=== PATIENT | female | born 1985 | race Caucasian/White ===

== ENCOUNTER 2025-04-27 08:16 | Inpatient (IN) | payer BC ==
[~2025-04-27 08:16] MED LIST: Sodium Chloride 0.9% 10 ML Syringe FLUSH PRN; Sodium Chloride 0.9% 10 ML Syringe FLUSH SCH; propofoL 500 MG/50 ML 50 ML ONE
[2025-04-27] MEDS ORDERED: Propofol 200 MG/20 ML SDV ONE ×2 (08:18→09:30)
[2025-04-27] MEDS ORDERED: dexmedeTOMIDine HCl 200 MCG/2 ML SDV ONE (08:20)
[2025-04-27] MEDS ORDERED: Dexamethasone 4 MG/ML 5 ML MDV ONE (08:20)
[2025-04-27] MEDS ORDERED: Ondansetron 4 MG/2 ML SDV ONE (08:20)
[2025-04-27] MEDS ORDERED: Ketorolac 30 MG/ML SDV ONE (08:20)
[2025-04-27] MEDS ORDERED: fentaNYL 250 MCG/5 ML SDV ONE ×2 (08:27→09:41)
[2025-04-27] MEDS: Lactated Ringers 1,000 ML IV SCH (08:35)
[2025-04-27 08:49] LABS: BASOPHILS ABSOLUTE AUTO 0.1 K/mm3 (0.0-0.2); BASOPHILS PERCENT AUTO 0.9 % (0.0-1.0); EOSINOPHILS ABSOLUTE AUTO 0.1 K/mm3 (0.0-0.4); EOSINOPHILS PERCENT AUTO 1.7 % (0.0-6.0); IMMATURE GRAN ABSOLUTE AUTO 0.01 K/mm3 (0.00-0.05); IMMATURE GRAN PERCENT AUTO 0.1 % (0.0-0.4); LYMPHOCYTES ABSOLUTE AUTO 2.0 K/mm3 (1.0-4.8); LYMPHOCYTES PERCENT AUTO 26.5 % (24.0-44.0); MEAN PLATELET VOLUME 9.5 fl (9.4-12.3); MONOCYTES ABSOLUTE AUTO 0.7 K/mm3 (0.0-0.8); MONOCYTES PERCENT AUTO 9.1 % (0.0-8.0); NEUTROPHILS ABSOLUTE AUTO 4.7 K/mm3 (1.8-7.7); NEUTROPHILS PERCENT AUTO 61.7 % (41.0-71.0); NRBC ABSOLUTE 0.00 (0.00-0.02); NRBC PERCENT 0.0 % (0.0-0.2); PLATELET COUNT,PLT 349 K/mm3 (150-400); RED BLOOD CELL COUNT 4.54 M/mm3 (4.10-5.30); WHITE BLOOD CELL COUNT,WBC 7.58 K/mm3 (3.9-11.3)
[2025-04-27 09:07] LABS: BLOOD UREA NITROGEN,BUN 11.0 mg/dL (7-18); CARBON DIOXIDE,CO2 27.0 mEq/L (21-32); CHLORIDE,CL 105.0 mEq/L (98-107); CREATININE 0.7 mg/dL (0.55-1.02); EST CRCL DRUG DOSING (CG) 91.33 mL/min; ESTIMATED GFR 111.0 mL/min (>60); GLUCOSE RANDOM 105.0 mg/dL (70-99); POTASSIUM,K 3.5 mEq/L (3.5-5.1); SODIUM,NA 140.0 mEq/L (136-145)
[2025-04-27] MEDS ORDERED: Lactated Ringers 1,000 ML ONE (09:47)
[2025-04-27] MEDS ORDERED: Labetalol 100 MG/20 ML MDV ONE (09:48)
[2025-04-27] MEDS ORDERED: propofoL 500 MG/50 ML 50 ML ONE (09:50)
[2025-04-27] MEDS: Lidocaine 1% with EPINEPHrine 1:100,000 20 ML MDV ONE (10:30)
[2025-04-27] MEDS ORDERED: fentaNYL 100 MCG/2 ML SDV IVPUSH PRN (11:08)
[2025-04-27] MEDS: Acetaminophen/oxyCODONE 325-5 MG Tab PO PRN (12:48)
[2025-04-27] MEDS: Ketorolac 30 MG/ML SDV IVPUSH PRN (16:54)
[2025-04-27] MEDS: Ketorolac 30 MG/ML SDV IVPUSH SCH (23:09)
[2025-04-28 04:49] LABS: BASOPHILS ABSOLUTE AUTO 0.0 K/mm3 (0.0-0.2); BASOPHILS PERCENT AUTO 0.1 % (0.0-1.0); EOSINOPHILS ABSOLUTE AUTO 0.0 K/mm3 (0.0-0.4); EOSINOPHILS PERCENT AUTO 0.0 % (0.0-6.0); IMMATURE GRAN ABSOLUTE AUTO 0.06 K/mm3 (0.00-0.05); IMMATURE GRAN PERCENT AUTO 0.4 % (0.0-0.4); LYMPHOCYTES ABSOLUTE AUTO 1.4 K/mm3 (1.0-4.8); LYMPHOCYTES PERCENT AUTO 8.3 % (24.0-44.0); MEAN PLATELET VOLUME 9.5 fl (9.4-12.3); MONOCYTES ABSOLUTE AUTO 1.3 K/mm3 (0.0-0.8); MONOCYTES PERCENT AUTO 8.0 % (0.0-8.0); NEUTROPHILS ABSOLUTE AUTO 13.7 K/mm3 (1.8-7.7); NEUTROPHILS PERCENT AUTO 83.2 % (41.0-71.0); NRBC ABSOLUTE 0.00 (0.00-0.02); NRBC PERCENT 0.0 % (0.0-0.2); PLATELET COUNT,PLT 293 K/mm3 (150-400); RED BLOOD CELL COUNT 3.71 M/mm3 (4.10-5.30); WHITE BLOOD CELL COUNT,WBC 16.43 K/mm3 (3.9-11.3)
[2025-04-28] MEDS: Acetaminophen/oxyCODONE 325-5 MG Tab PO PRN (07:49)
== END 2025-04-28 08:03 | disposition home or self-care (01) | DRG 519 ==
LOC: JD.SDS 08:16 → JD.OB 10:47
PROVIDERS: ADMIT Obstetrics & Gynecology; ATTEND Obstetrics & Gynecology
PROC: 0UT90ZZ Resection of Uterus, Open Approach (ICD-10-PCS; principal; 2025-04-27 09:15)
DX: D25.9 Leiomyoma of uterus, unspecified (principal); Z98.890 Other specified postprocedural states; Z98.891 History of uterine scar from previous surgery; Z88.8 Allergy status to other drugs, medicaments and biological substances; Z79.899 Other long term (current) drug therapy
CPT/HCPCS: 36415; 80048; 81025; 85025; 86850; 86900; 86901; A9270-GY; J0665; J0690; J1100; J1171; J1885; J1920; J2004; J2405; J2704; J3010; J3490; J7120